=== PATIENT | female | born 1940 | race Caucasian/White ===

== ENCOUNTER 2024-12-22 10:56 | Observation (INO) | payer MEDICARE, SELFPAY ==
--- OUTSIDE RECORDS SUMMARY | 2023-07-30 03:30 | XMS_ITS ---
Author Organization [facility] pecialists [facility] Address [address] [place] [address] [place] [address] Care Team Providers Care Harness Repairer Name Role Phone Rey Rey, Joe Primary Care Provider Kvng Byrd MD, [facility] [phone] REASON FOR VISIT [facility]-rt modified radical mastectomy Encounters Encounter Location Date Provider Diagnosis [facility] Outpatient [address] [place] [address] 07/30/2023 Juan Daniel Byrd Plan Of Treatment No Information Progress Notes * Loki KELLOGGDOB: [birth year] (84 yo F)Acc No.[id number]:07/30/2023 Patient: Triny COREAS Loki Omalley Provider: Anthony Byrd MD :1940 A ge:83 Y S ex:Female Date:07/30/2023 Address:[address] [place], [place] [id number] Pcp:Joe Le DRome * Images: * Electronic signature of Jayme Byrd MD, , [id number] on 12/22/2024 at 12:03 PM EDT Sign off status: Pending * Provider: Anthony Byrd MD Date: 0 07/30/2023 Generated for Ubaldo monson/Taras/eTransmitting on: 1 12:03 PM EDT
[2024-12-22] VITALS (36 sets, daily range): BP systolic 107–253; BP diastolic 58–110; PULSE 50–87; TEMP 36.8–37.3; O2SAT 93–97; BMI 35.2; BMI 27.1
--- NOTE | 2024-12-22 11:14 | XR_ITS ---
The [place] [id number] Patient Name: BRODY MUNSON MRN: [id number] date: 1940 Sex: F Assigned Patient Location: ER Current Patient Location: ER Accession/Order Number: [id number] Exam Date: 12/22/2024 11:32 Report Date: 12/22/2024 11:47 At the request of: TREASURE MERCADO MD Procedure: XR chest 1V Single view chest: CLINICAL HISTORY: Chest pain COMPARISON: None FINDINGS: The heart is normal in size. Mild interstitial changes without consolidation or pneumothorax. The pulmonary vasculature is normal. Mediastinum and hilar regions are unremarkable. No pleural effusions are seen. Visualized bones are intact. XR/XR chest 1V IMPRESSION: MILD INTERSTITIAL CHANGES. NO CONSOLIDATION TO SUGGEST PNEUMONIA. Impression dictated by: Augusto Jasmine Jr., D.O. 12/22/2024 11:47 AM Dictation Location: [place] [address] Electronically authenticated by: [id number] Y Date: 12/22/2024 11:47
--- NOTE | 2024-12-22 11:14 | ECG_ITS ---
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 Measurements Intervals [place] Rate: 57 P: 63 ID: 170 QRS: 24 QRSD: 86 T: 90 QT: 412 QTc: 407 Interpretive Statements 1100 Sinus rhythm 3114 Cannot rule out anterior myocardial infarction, age undetermined 9150 abnormal ECG No previous ECG available for comparison Electronically Signed On 12-22-2024 18:06:23 EDT by YANIQUE GARCIAS M.D.
--- NOTE | 2024-12-22 11:15 | ED.GENADUL1 ---
HPI HPI - General Adult General Chief complaint: Chest Pain Stated complaint: R SHOULDER PAIN Time Seen by Provider: 12/22/24 10:59 Source: patient Mode of arrival: walk-in History of Present Illness HPI narrative: 84-year-old female presents for right shoulder and chest and neck pain. She has been having this on and off for a few days but it got worse during the night and it kept waking her up. She still has it now mostly in the neck. She does not know if she has had a heart catheterization or not. No fever or cough or complaints to me of shortness of breath. Related Data Home Medications ?Medication ?Instructions ?Recorded ?Confirmed duloxetine 30 mg capsule,delayed 30 mg PO DAILY 12/22/24 12/22/24 release glimepiride 2 mg tablet 2 mg PO DAILY 12/22/24 12/22/24 hydroxyzine HCl 25 mg tablet 25 mg PO BID 12/22/24 12/22/24 losartan 100 1 tab PO DAILY 12/22/24 12/22/24 mg-hydrochlorothiazide 25 mg tablet Allergies Allergy/AdvReac Type Severity Reaction Status Date / Time aspirin Allergy Severe Unknown Verified 12/22/24 11:06 Penicillins Allergy Severe Swelling Verified 12/22/24 11:06 of Lip/Tongue/Throat Review of Systems ROS Narrative A ten point review of systems is negative except as noted above. [facility] Medical History (Updated 12/22/24 @ 13:39 by Erick Lewis MD) Breast cancer ?C50.919 - Malignant neoplasm of unspecified site of unspecified female breast (ICD-10) HTN (hypertension) ?I10 - Essential (primary) hypertension (ICD-10) Social History Little interest or pleasure in doing things: not at all Feeling down, depressed, or hopeless: not at all Exam Narrative Exam Narrative: Nurses note and vital signs reviewed and patient is not hypoxic. General:The patient appears in no apparent distress. Skin:Warm, dry, no pallor noted.There is no rash noted. Head:Normocephalic, atraumatic; no swelling or masses in the neck Eye: Normal conjunctiva, no drainage Ears, Nose, Mouth, and Throat: oral mucosa is moist. Nares patent. Cardiovascular:Regular Rate and Rhythm Respiratory:Patient is in no distress, no accessory muscle use, lungs are clear to auscultation, no wheezing, rales or rhonchi Back:non-tender GI: Soft and nontender Musculoskeletal: The patient has no evidence of calf tenderness, no pitting edema, symmetrical pulses noted bilaterally Neurological: Awake and alert Psychiatric:Cooperative Constitutional Vital Signs, click to edit/add: Last Vital Signs Temp 98.2 F 12/22/24 10:59 Pulse 60 12/22/24 13:31 Resp 17 12/22/24 13:31 BP 192/76 H 12/22/24 13:31 Pulse Ox 96 12/22/24 13:31 O2 Del Method Room Air 12/22/24 10:59 Course Vital Signs Vital signs: Vital Signs Temperature 98.2 F 12/22/24 10:59 Pulse Rate 72 12/22/24 10:59 Respiratory Rate 20 12/22/24 10:59 Blood Pressure 212/90 H 12/22/24 10:59 Pulse Oximetry 96 12/22/24 10:59 Oxygen Delivery Method Room Air 12/22/24 10:59 Temperature 98.2 F 12/22/24 10:59 Pulse Rate 60 12/22/24 13:31 Respiratory Rate 17 12/22/24 13:31 Blood Pressure 192/76 H 12/22/24 13:31 Pulse Oximetry 96 12/22/24 13:31 Oxygen Delivery Method Room Air 12/22/24 10:59 Medical Decision Making MDM Narrative Medical decision making narrative: Pulmonary embolism is identified on the CTA. Lower extremity Dopplers are pending. She does not have any contraindications to blood thinners and she was given subcutaneous Lovenox. Case discussed with the patient and her family and she is being admitted. Treatment diagnosis and disposition were discussed thoroughly. No evidence of heart strain at this point. Differential Diagnosis Differential Diagnosis: PE, ME, NSTEMI, pneumothorax Lab Data Lab results reviewed: Yes I reviewed the patient's lab results Labs: Lab Results 12/22/24 Range/Units 11:13 WBC 8.5 (4.0-11.0) 10^3/uL RBC 4.35 (4.20-5.40) 10^6/uL Hgb 13.7 (12.0-16.0) g/dL Hct 40.4 (36.0-48.0) % MCV 92.9 (81.0-99.0) fL MCH 31.5 (26.7-34.0) pg MCHC 33.9 (29.9-35.2) g/dL RDW 12.4 (11.0-15.0) % Plt Count 285 (150-450) 10^3/uL MPV 9.5 (9.5-13.5) fL Neut % (Auto) 46.5 (43.0-75.0) % Lymph % (Auto) 47.1 (20.5-60.0) % Mccreary % (Auto) 4.5 (1.7-12.0) % Eos % (Auto) 1.2 (0.9-7.0) % Baso % (Auto) 0.5 (0.2-2.0) % Neut # (Auto) 4.0 (1.4-6.5) 10^3/uL Lymph # (Auto) 4.0 H (1.2-3.8) 10^3/uL Mccreary # (Auto) 0.4 (0.3-0.8) 10^3/uL Eos # (Auto) 0.1 (0.0-0.7) 10^3/uL Baso # (Auto) 0.0 (0.0-0.1) 10^3/uL Abs Immat Gran (auto) 0.02 (0.00-0.03) 10^3/uL Imm/Tot Granulo (auto) 0.2 (0.0-0.5) % D-Dimer 1.62 H* (<=0.59) mg/L FEU Sodium 142 (136-145) mmol/L Potassium 3.4 L (3.5-5.1) mmol/L Chloride 105 (98-107) mmol/L Carbon Dioxide 28.5 (21.0-32.0) mmol/L Anion Gap 11.9 BUN 14.0 (7.0-18.0) mg/dL Creatinine 0.92 (0.55-1.02) mg/dL Est GFR ( Amer) >60 (>=60 mL/min/1.73m^2) Est GFR (Non-Af Amer) 58 L (>=60 mL/min/1.73m^2) BUN/Creatinine Ratio 15.2 Glucose 230 H (74-106) mg/dL Calcium 8.7 (8.5-10.1) mg/dL Troponin I High Sens 8.0 (4.0-51.3) pg/mL Imaging Data Chest x-ray: Radiologist's impression: ITS Impressions Chest X-Ray 12/22/24 11:14 IMPRESSION: MILD INTERSTITIAL CHANGES. NO CONSOLIDATION TO SUGGEST PNEUMONIA. Impression dictated by: Augusto Jasmine Jr., D.O. 12/22/2024 11:47 AM Dictation Location: [employer] Electronically authenticated by: [id number] Y Date: 12/22/2024 11:47 Chest CTA 12/22/24 11:55 IMPRESSION: FILLING DEFECT IS SEEN INVOLVING SEGMENTAL BRANCH OF THE RIGHT LOWER LOBE SUSPICIOUS FOR PULMONARY EMBOLISM. NO EVIDENCE OF RIGHT HEART STRAIN. Impression dictated by: Augusto Jasmine Jr., D.O. 12/22/2024 1:08 PM Dictation Location: [employer] Electronically authenticated by: [id number] Y Date: 12/22/2024 13:08 ECG Data Attestation: I personally reviewed and interpreted this ECG as follows: (EKG on my interpretation shows sinus rhythm with rate of 57 and no acute change) Critical Care Time Critical Care Time Critical Care Time: Yes Total Critical Care Time: 35 Attestation: Due to the high probability of sudden and clinically significant deterioration in the patient's condition he/she required the highest level of my preparedness to intervene urgently I provided critical care time including documentation time, medication orders and management, reevaluation, vital sign assessment, ordering and reviewing of lab tests, ordering and reviewing of x-ray studies, and admission orders. Aggregate critical care time is 35 minutes including only time during which I was engaged in work directly related to his/her care and did not include time spent treating other patients simultaneously. Discharge Plan Discharge Chief Complaint: Chest Pain Clinical Impression: Pulmonary embolism Patient Disposition: Admitted as Observation Time of Disposition Decision: 13:39 Condition: Fair
[2024-12-22 11:25] LABS: Hematocrit 40.4 % (36.0-48.0); Hemoglobin 13.7 g/dL (12.0-16.0); Immature Granulocytes Abs Auto 0.02 10^3/uL (0.00-0.03); Immature Granulocytes Pct Auto 0.2 % (0.0-0.5); Lymphocytes Absolute Auto 4.0 10^3/uL (1.2-3.8); Mean Corpuscular HGB Conc 33.9 g/dL (29.9-35.2); Mean Corpuscular Hemoglobin 31.5 pg (26.7-34.0); Mean Corpuscular Volume 92.9 fL (81.0-99.0); Platelet Count 285 10^3/uL (150-450); Red Blood Count 4.35 10^6/uL (4.20-5.40); White Blood Count 8.5 10^3/uL (4.0-11.0)
[2024-12-22 11:46] LABS: Anion Gap 11.9; Blood Urea Nitrogen 14.0 mg/dL (7.0-18.0); Calcium 8.7 mg/dL (8.5-10.1); Carbon Dioxide 28.5 mmol/L (21.0-32.0); Chloride 105 mmol/L (98-107); Estimated GFR (African America >60 (>=60 mL/min/1.73m^2); Estimated GFR (Non-African Ame 58 (>=60 mL/min/1.73m^2); Glucose 230 mg/dL (74-106); Potassium 3.4 mmol/L (3.5-5.1); Sodium 142 mmol/L (136-145)
--- NOTE | 2024-12-22 11:55 | CT_ITS ---
The [address] [address] Patient Name: BRODY MUNSON MRN: [id number] date: 1940 Sex: F Assigned Patient Location: ED.MAIN Current Patient Location: ED.MAIN Accession/Order Number: [id number] Exam Date: 12/22/2024 12:35 Report Date: 12/22/2024 13:08 At the request of: TREASURE MERCADO MD Procedure: CT angio chest CT ANGIOGRAM OF THE CHEST, PULMONARY EMBOLISM PROTOCOL: CLINICAL INFORMATION: Elevated d-dimer. Chest pain COMPARISON: TECHNIQUE: Following intravenous injection of contrast CT scans of the chest were obtained using pulmonary embolism protocol. Coronal and sagittal reconstructed images, as well as volume rendered CT pulmonary angiographic images were also submitted.The CT exam was performed using one or more of the following dose reduction techniques: Automated exposure control, adjustment of the MA and/or Kv according to patient size, or use of the iterative reconstruction technique. FINDINGS: Pulmonary Vasculature: Contrast bolus is adequate for evaluation of pulmonary embolism. Pulmonary trunk appears nondilated. A filling defect is seen involving a segmental branch of the right lower lobe suspicious for nonocclusive embolism. Mediastinum : Thoracic aorta is normal in caliber. No pericardial effusion. No lymphadenopathy. The esophagus is grossly unremarkable. Lungs: Expiratory phase of imaging with air trapping present. Scattered areas of lung scarring. Calcified granulomas. No consolidation pneumothorax or pleural effusion. Upper abdomen: No acute findings liver and splenic granulomas. Soft tissue/bones: Soft tissues surrounding the chest wall demonstrate no acute findings. Osseous structures demonstrate degenerative change. CT/CT angio chest IMPRESSION: FILLING DEFECT IS SEEN INVOLVING SEGMENTAL BRANCH OF THE RIGHT LOWER LOBE SUSPICIOUS FOR PULMONARY EMBOLISM. NO EVIDENCE OF RIGHT HEART STRAIN. Impression dictated by: Augusto Jasmine Jr., D.O. 12/22/2024 1:08 PM Dictation Location[facility] Electronically authenticated by: [id number] Y Date: 12/22/2024 13:08
--- OUTSIDE RECORDS SUMMARY | 2024-12-22 12:04 | XMS_ITS | Encounter Summary ---
Author Organization [facility] Address [address], [address] [place] [address] Care Team Providers Care Property Controller Name Role Phone Joe Le MD Primary Care Provider [phone] Encounter Details Date Type Department Care Team (Late st Contact Info) Description 04/29/2022 Transcribe Orders [facility] [address] [place] [address] Brianna Felder MD [address] [address] Social History Tobacco Use Types Packs/Day Years Used Date Smoking Tobacco: Never Smokeless Tobacco: Never Alcohol Use Standard Drinks/Week Comments Not Currently 0 (1 standard drink = 0.6 oz pur e alcohol) Comments No Sex and Gender Information Value Date Recorded Sex Assigned at Not on file Legal Sex Female 5:08 PM EST Gender Identity Not on file Sexual Orientation Not on file documented as of this encounter Plan of Treatment Not on file documented as of this encounter Visit Diagnoses Not on filedocumented in this encounter Care Teams Property Controller Relationship Specialty Start Date End Date Joe Le MD [address] [place] [address] PCP - General Family Medicine 03/19/22 documented as of this encounter
--- OUTSIDE RECORDS SUMMARY | 2024-12-22 12:06 | XMS_ITS | Clinical Summary ---
Author Organization [facility] Address [address] [facility] [address], [address] [place] [address] Care Team Providers Care Compression Molding Machine Operator Name Role Phone Joe Le MD Primary Care Provider [phone] Allergies Active Allergy Reactions Criticality Noted Date Comments Aspirin 09/06/2020 Other reaction(s): red itchy skin Penicillins High 09/06/2020 Other reaction(s): swelling of extremities Spearmint Oil High 09/06/2020 Other reaction(s): Tongue swelling Medications etodolac (LODINE) 400 MG tablet 02/03/2022 Active metFORMIN (GLUCOPHAGE) 500 MG tablet 02/03/2022 Activ e amLODIPine (NORVASC) 10 MG tablet 12/19/2021 Active glimepiride (AMARYL) 2 MG tablet Take 2 mg by mouth every morning (before breakfast) Active losartan-hydroC HLOROthiazide (HYZAAR) 100-25 MG per tablet 03/17/2022 Activ e Active Problems No known active problems Social History Tobacco Use Types Packs/Day Years Used Date Smoking Tobacco: Never Smokeless Tobacco: Never Tobacco Cessation:Counseling Given: Not Answered Alcohol Use Standard Drinks/Week Comments Not Currently 0 (1 standard drink = 0.6 oz pur e alcohol) Comments No Sex and Gender Information Value Date Recorded Sex Assigned at Not on file Legal Sex Female 5:08 PM EST Gender Identity Not on file Sexual Orientation Not on file Last Filed Vital Signs Vital Sign Reading Time Taken Comments Blood Pressure 122/68 03/19/2022 10:04 AM EST Pulse - - Temperature - - Respiratory Rate - - Oxygen Saturation - - Inhaled Oxygen Concentration - - Weight 77.2 kg (170 lb 3.2 oz) 03/19/2022 10:04 AM EST Height 152.4 cm (5') 03/19/2022 10:04 AM EST Body Mass Index 33.24 03/19/2022 10:04 AM EST Plan of Treatment Health Maintenance Due Date Last Done Comments Depression Screen 1950 DTaP/Tdap/Td vaccine (1 - Tdap) 1957 Pneumococcal 50+ years Vacci ne (1 of 1 - PCV) 01/24/1988 Shingles vaccine (1 of 2) 01/24/1988 Respiratory Syncytial Virus (RSV) or age 60 yrs+ (1 - 1-dose 75+ series) 2013 Flu vaccine (#1) 10/06/2024 COVID-19 Vaccine ( - 2023-2 5 season) 2024 Hepatitis A vaccine Aged Out No longe r eligible based on patient's age to complete this topic Hepatitis B vaccine Aged Out No longe r eligible based on patient's age to complete this topic Hib vaccine Aged Out No longer eligi ble based on patient's age to complete this topic Meningococcal (ACWY) vaccine Aged Out No longer eligible based on patient's age to complete this topic Meningococcal B vaccine Aged Out No l onger eligible based on patient's age to complete this topic Polio vaccine Aged Out No longer elig ible based on patient's age to complete this topic [facility] [address] [place] [id number] H[employer] Care Teams Compression Molding Machine Operator Relationship Specialty Start Date End Date Joe Le MD [address] [place] [id number] PCP - General Family Medicine 03/19/22
--- OUTSIDE RECORDS SUMMARY | 2024-12-22 12:06 | XMS_ITS | Patient Health Record ---
Author Organization [facility] pecialists [facility] Address [address] [place] [address] Care Team Providers Care Dye Feeder Name Role Phone Joe Le D.O. 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
--- OUTSIDE RECORDS SUMMARY | 2024-12-22 12:06 | XMS_ITS | Clinical Summary ---
Author Organization [facility] Address [address] [place] [address] Care Team Providers Care Filling Hauler Name Role Phone Unavailable Primary Care Provider Unavailabl e Social History Tobacco Use Types Packs/Day Years Used Date Smoking Tobacco: Never Assessed Comments Unknown Sex and Gender Information Value Date Recorded Sex Assigned at Not on file Legal Sex Female 7:04 PM EDT Gender Identity Not on file Sexual Orientation Not on file Last Filed Vital Signs Vital Sign Reading Time Taken Comments Blood Pressure 166/79 02/03/2021 12:00 PM EST Pulse - - Temperature - - Respiratory Rate - - Oxygen Saturation - - Inhaled Oxygen Concentration - - Weight 76.7 kg (169 lb 3.2 oz) 01/28/2022 12:00 PM EST Height 151.1 cm (4' 11.5 ) 01/28/2022 12:[address] Body Mass Index 33.6 01/28/2022 12:00 PM EST Plan of Treatment Not on file Insurance [facility] MEDIC[facility] ADVANTAGE
--- OUTSIDE RECORDS SUMMARY | 2024-12-22 12:06 | XMS_ITS | Clinical Summary ---
Author Organization [facility] Address [address] [place] [address] Care Team Providers Care Expressive Therapist Name Role Phone Unavailable Primary Care Provider Unavailabl e Social History Tobacco Use Types Packs/Day Years Used Date Smoking Tobacco: Never Assessed Comments Unknown Sex and Gender Information Value Date Recorded Sex Assigned at Not on file Legal Sex Female 1:12 PM EDT Gender Identity Not on file Sexual Orientation Not on file Plan of Treatment Health Maintenance Due Date Last Done Comments DEXA SCAN DISCUSSION 1940 TETANUS 1940 TDAP (ADULT) 1957 CERVICAL CANCER SCREENING DISCUSSION 1959 MAMMOGRAM SCREENING DISCUSSION 1978 COLORECTAL CANCER SCREENING DISCUSSION 1983 PNEUMOCOCCAL VACCINE SERIES (1 of 1 - PCV) 01/24/1988 ZOSTER (SHINGLES) VACCINE (1 of 2) 01/24/1988 RSV VACCINE (1 - 1-dose 75+ series) 2013 COVID-19 VACCINE (1 - 2024-2 6 season) 2024 INFLUENZA VACCINE (#1) 2024 HEP B VACCINE Aged Out No longer elig ible based on patient's age to complete this topic Insurance [address] [place] [address] Medicare [employer] HMO PPO [place] [id number]
--- OUTSIDE RECORDS SUMMARY | 2024-12-22 12:06 | XMS_ITS | Clinical Summary ---
Author Organization [facility] Address [address] [place] [address] Care Team Providers Care Storage Brine Worker Name Role Phone Joe Le MD Primary Care Provider [phone] Social History Tobacco Use Types Packs/Day Years Used Date Smoking Tobacco: Never Assessed Comments Unknown Sex and Gender Information Value Date Recorded Sex Assigned at Not on file Legal Sex Female 8:58 AM EDT Gender Identity Not on file Sexual Orientation Not on file Last Filed Vital Signs Vital Sign Reading Time Taken Comments Blood Pressure - - Pulse - - Temperature - - Respiratory Rate - - Oxygen Saturation - - Inhaled Oxygen Concentration - - Weight 87.5 kg (193 lb) 02/22/2015 10:20 AM EST Height 157.5 cm (5' 2 ) 02/22/2015 10:20 AM EST Body Mass Index 35.3 02/22/2015 10:20 AM EST Plan of Treatment Health Maintenance Due Date Last Done Comments DTaP,Tdap,and Td Vaccines (1 - Tdap) 1957 Pneumococcal Vaccines 50year s + (1 of 1 - PCV) 01/24/1988 Zoster Recombinant Vaccines (1 of 2) 01/24/1988 DEXA Bone Density Baseline 2003 Respiratory Syncytial Virus (RSV) or ages 60 years and older (1 - 1-dose 75+ series) 2013 COVID-19 Vaccine ( - 2024-2 6 season) 2024 Influenza Vaccine (#1) 2024 Respiratory Syncytial Virus (RSV) ages 0 thru 19 months Aged Out No longer eligible based on patient's age to complete this topic Insurance MEDICARE PART A AND B Care Teams Storage Brine Worker Relationship Specialty Start Date End Date Joe Le MD [address] [place] [address] PCP - General Family Medicine 10/15/14
--- OUTSIDE RECORDS SUMMARY | 2024-12-22 12:06 | XMS_ITS | Clinical Summary ---
Author Organization [facility] Address [address] [place] [address] Care Team Providers Care Net Programmer Name Role Phone Joe Le MD Primary Care Provider [phone] Kassy Vega MD Unavailable [phone] Stephanie Burciaga CNP Unavailable [phone] Allergies Active Allergy Reactions Criticality Noted Date Comments Adhesive Tape-Silicones 07/24/2022 Other reaction(s): Unknown Aspirin Other Medium 09/06/2020 Other reaction(s): red itchy skin Other reaction(s): red itchy skin Other reaction(s): red itchy skin Bee Sting Kit Unknown 07/24/2022 Cortisone High 06/17/2022 Other reaction(s): severe pain Penicillins High 09/06/2020 Other reaction(s): swelling of extremities Other reaction(s): swelling of extremities Other reaction(s): swelling of extremities Spearmint Oil High 09/06/2020 Other reaction(s): Tongue swelling Other reaction(s): Tongue swelling Other reaction(s): Tongue swelling Medications losartan-hydroc hlorothiazide (Hyzaar) 100-25 mg tablet Take 1 tablet by mouth in the morning. 03/17/2022 Active glimepiride (Amaryl) 2 mg tablet Take 2 mg by mouth before breakfast. Active gabapentin (Neurontin) 100 mg capsule TAKE 1 CAPSULE BY MOUTH ONCE DAILY FOR 30 DAYS 07/08/2020 Active etodolac (Lodine) 400 mg tablet 04/22/2022 Active melatonin 3 mg capsule Active TRUEplus Lancets 33 gauge misc 07/24/2022 Active True Metrix Air Glucose Meter kit 07/24/2022 Active True Metrix Glucose Test Strip strip 07/24/2022 Active DropSafe Alcohol Prep Pads pads, medicated 07/24/2022 Active metoprolol tartrate (Lopressor) 25 mg tablet Take 25 mg by mouth twice a day. 02/15/2023 Active ipratropium (Atrovent) 0.02 % nebulizer solution Inhale 0.5 mg every 6 (six) hours if needed. 02/15/2023 Active letrozole (Femara) 2.5 mg chemo tabletIndicatio ns:Invasive ductal carcinoma of right breast (CMS/HCC),Malig nant neoplasm of central portion of right breast in female, estrogen receptor positive (CMS/HCC) Take 1 tablet (2.5 mg total) by mouth in the morning Take with or without food. 90 tablet 2 06/30/2023 Active gabapentin (Neurontin) 300 mg capsule Take 300 mg by mouth in the morning and at bedtime. 07/15/2023 Active apixaban (Eliquis) 5 mg tablet Take 5 mg by mouth in the morning and at bedtime. Active HYDROcodone-aldo taminophen ([place]) 5-325 mg tablet Take 1 tablet by mouth every 6 (six) hours if needed for severe pain (8-10 pain score). Active Active Problems Problem Noted Date Diagnosed Date Acute pulmonary embolism without acute cor pulmo nale 06/30/2023 Post-menopausal 06/30/2023 Osteopenia of multiple sites 06/30/2023 Invasive ductal carcinoma of right breast 2023 Malignant neoplasm of central portion of female breast 06/24/2023 Cancer Staging:Clinical stage from 06/26/2022:Stage IIA(cT2, cN1, cM0, G1, ER+, LA+, HER2-) - Signed by Kassy Vega MD on 07/14/2023 Estrogen receptor positive neoplasm 06/24/2023 06/24/2023 Controlled type 2 diabetes m ellitus without complication, without long-term current use of insulin 02/10/2023 06/24/2023 Hypomagnesemia 02/10/2023 06/24/2023 Pneumonia of right lower lobe due to infectious organism 02/10/2023 06/24/2023 Primary hypertension 02/10/2023 06/24/2023 Single subsegmental pulmonar y embolism without acute cor pulmonale 02/10/2023 06/24/2023 Retinal hemorrhage 10/30/2011 Exudative age-related macular degeneration 10/29 Pseudophakia 10/30/2011 Family History Medical History Relation Name Comments Breast cancer Daughter Liver cancer Father Thyroid disease Mother Uterine cancer Mother Cancer Paternal Grandmother Relation Name Status Comments Daughter Father Mother Paternal Grandmother Social History Tobacco Use Types Packs/Day Years Used Date Smoking Tobacco: Former Cigarettes Q uit: 1988 Smokeless Tobacco: Never Tobacco Cessation:Counseling Given: Not Answered Alcohol Use Standard Drinks/Week Comments Yes 0 (1 standard drink = 0.6 oz pur e alcohol) Maybe once a month - beer Humiliation, Afraid, Rape, and Kick questionnair e Answer Date Recorded Within the last year, have y ou been afraid of your partner or ex-partner? No 08/19/2023 Emotionally Abused Not on file 08/19/2023 Physically Abused Not on file 08/19/2023 Sexually Abused Not on file 08/19/2023 PHQ-2 Answer Date Recorded Patient Health Questionnaire-2 Score 0 08/19/2023 Comments No Sex and Gender Information Value Date Recorded Sex Assigned at Not on file Legal Sex Female 2:30 PM EDT Gender Identity Not on file Sexual Orientation Not on file Last Filed Vital Signs Vital Sign Reading Time Taken Comments Blood Pressure 156/50 07/23/2023 12:57 PM EDT Pulse 57 07/23/2023 12:57 PM EDT Temperature 37.2 C (98.9 F) 07/23/2023 12:57 PM EDT Respiratory Rate 16 06/25/2023 1:51 PM EDT Oxygen Saturation 94% 07/23/2023 12:57 PM EDT Inhaled Oxygen Concentration - - Weight 81.2 kg (179 lb) 08/19/2023 1:05 PM EDT Height 152.4 cm (5') 07/23/2023 12:57 PM EDT Body Mass Index 34.96 07/23/2023 12:57 PM EDT Plan of Treatment Health Maintenance Due Date Last Done Comments Diabetes: Hemoglobin A1C 1940 Medicare Annual Wellness (AWV) 1940 Diabetes: Retinopathy Screening 01/24/1948 Depression Screening 1950 Diabetes: Urine Protein Screening 1957 Pneumococcal Vaccine: 50+ Ye ars (1 of 2 - PCV) 1957 Adult Tetanus 01/24/1960 Zoster Vaccines (1 of 2) 01/24/1988 Fall Risk Screening 2003 COVID-19 Vaccine (1 - 2023-2 5 season) 2024 Influenza Vaccine (#1) 2024 HIB Vaccines Aged Out No longer eligi ble based on patient's age to complete this topic HPV Vaccines Aged Out No longer eligi ble based on patient's age to complete this topic IPV Vaccines Aged Out No longer eligi ble based on patient's age to complete this topic Meningococcal B Vaccine Aged Out No l onger eligible based on patient's age to complete this topic Meningococcal Vaccine Aged Out No flynn lele eligible based on patient's age to complete this topic Rotavirus Vaccines Aged Out No longer eligible based on patient's age to complete this topic Insurance [facility] MEDICARE ADVANTAGE Care Teams Net Programmer Relationship Specialty Start Date End Date Joe Le MD [address] [place] [address] PCP - General 06/30/23 Kassy Vega MD [address] [place] [address] Consulting Physician Hematology and Oncology 06/30/23 Stephanie Burciaga, UNDERWATER PHOTOGRAPHER [address] [place] [address] Consulting Physician Oncology 08/11/23
[2024-12-22] MEDS: HYDRALAZINE HCL 20 MG/ML VIAL 10 MG IVP ×2 (13:18→16:28)
[2024-12-22] MEDS: ENOXAPARIN SODIUM 80 MG/0.8 ML SYRINGE SUBQ ×2 (13:49→22:27)
--- NOTE | 2024-12-22 14:42 | PM.HP ---
HPI H&P: HPI History of Present Illness Chief complaint: R SHOULDER PAIN PULMONARY EMBOLISM Narrative: Patient is an 84 year old female with medical hx as listed below, presented with pain on R sided of chest has been getting worse over the past few days. Denies fevers, chills, nausea, vomiting, diarrhea. Presented hypertensive. workup in ER showed elevated D-dimer, they ended up getting CT PE protocol which showed RLL PE, no evidence of R heart strain. Pt reports noncompliance with meds at home. Decision was made to keep for observation. Opioid HPI Opioid Management Most Recent Pain and Opioid Data: Last ORT Total Score 0 Today, 15:04 Last ORT Risk Category Low Risk Today, 15:04 Review of Systems ROS Status of ROS 10 or more systems reviewed and unremarkable except as noted in history and [facility] Breast cancer ?C50.919 - Malignant neoplasm of unspecified site of unspecified female breast (ICD-10) HTN (hypertension) ?I10 - Essential (primary) hypertension (ICD-10) Social History Highest level of school completed/degree received: 10th grade Little interest or pleasure in doing things: not at all Feeling down, depressed, or hopeless: not at all Meds Home Medications and Allergies Home Medications ?Medication ?Instructions ?Recorded ?Confirmed ?Type apixaban 5 mg (74 tabs) tablets in 5 mg PO BID #74 ea 12/22/24 Rx a dose pack (Eliquis DVT-PE Treat 30D Start) duloxetine 30 mg capsule,delayed 30 mg PO DAILY 12/22/24 12/22/24 History release glimepiride 2 mg tablet 2 mg PO DAILY 12/22/24 12/22/24 History hydroxyzine HCl 25 mg tablet 25 mg PO BID 12/22/24 12/22/24 History losartan 100 1 tab PO DAILY 12/22/24 12/22/24 History mg-hydrochlorothiazide 25 mg tablet Allergies Allergy/AdvReac Type Severity Reaction Status Date / Time aspirin Allergy Severe Unknown Verified 12/22/24 11:06 Penicillins Allergy Severe Swelling Verified 12/22/24 11:06 of Lip/Tongue/Throat Exam Narrative Exam Narrative: Const General: cooperative HEENT Normal oropharyngeal mucosa without any ulcers or exudates Breast exam:(done with chaperson RN at bedside and in the room): inspection lesion around nipple area, discharge noted, erythema surrounding it. Eyes: Conjunctiva normal Pulmonary Auscultation: clear to auscultation , no crackles, no wheezes Cardiovascular Rate: normal rate Rhythm: regular rhythm Heart Sounds: S1 normal, S2 normal and no murmurs GI Inspection: non-distended Palpation: soft, not firm and nontender. No rigidity or rebound. Deferred Neuro General: alert, awake and oriented x3. No obvious new focal deficit Musculoskeletal: normal range of motion Extrem General: no cyanosis, no pedal edema Psych Appearance: appropriate affect. Grossly normal Constitutional Vital Signs, click to edit/add: Last Vital Signs Temp 98.2 F 12/22/24 10:59 Pulse 75 12/22/24 14:10 Resp 19 12/22/24 14:10 BP 239/98 H 12/22/24 14:01 Pulse Ox 95 12/22/24 13:50 O2 Del Method Room Air 12/22/24 10:59 Results Labs Labs: Short CBC 12/22/24 Range/Units 11:13 WBC 8.5 (4.0-11.0) 10^3/uL Hgb 13.7 (12.0-16.0) g/dL Hct 40.4 (36.0-48.0) % Plt Count 285 (150-450) 10^3/uL BMP 12/22/24 11:13 Sodium 142 Potassium 3.4 L Chloride 105 Carbon Dioxide 28.5 BUN 14.0 Creatinine 0.92 Glucose 230 H Calcium 8.7 Assessment and Plan Assessment and Plan (1) Pulmonary embolism: (2) Hypertensive urgency: (3) Noncompliance with medications: Plan -CTA showed RLL, no evidence of Right heart strain, patient is hemodynamically stable, hypertensive on arrival here -Ordered venous Doppler. prelim no evidence of DVT -Started on Full dose Lovenox for full anticoagulation. Plan to transition to oral DOAC on discharge. Will arrange for Eliquis as outpatient. -Resume home meds. Added Coreg for better BP control -IV hydralazine as needed as directed Patient reports that she has been diagnosed with breast malignancy of R side. confirmed by biopsy, reports that it was malignant. No treatment was done as per pt as she would not tolerate it. Hypercoagulability likely due to underlying malignancy. DVT ppx: Lovenox Diet: as directed Discussed with pt and and son at bedside, all questions answered
--- NOTE | 2024-12-22 16:08 | CM.NOTE ---
CM discussed with pt regarding home Eliquis. Pt given card for 30day free trial and 15 dollar co-pay.
--- NOTE | 2024-12-22 16:14 | SWNOTE1 ---
Medicare Outpatient Observation Notice reviewed and discussed with patient. Pt. verbalized understanding and signed the form. Original given to patient and copy placed in patient?s chart.
--- NOTE | 2024-12-22 16:14 | SWNOTE1 ---
SW met with pt and her plan is to be discharged home tomorrow. She voiced she is feeling as good as she was when she came in. Pt stated she has lived a good life and taking it one day at a time. Pt has no anticipated discharge needs at this time. Pt family present in room and voiced no discharge needs.
[2024-12-22] MEDS: 0.9 % SODIUM CHLORIDE 500 ML IV (16:50)
--- NOTE | 2024-12-22 17:17 | PC.NURSE ---
1650- Call light on. Patient feeling dizzy. Skin moist and clammy. BP 76/40 manual. Head flat NS bolus initiated wide open. Dr Alexander notified and updated on event. 1655- BP 105/64. Cool cloth to forehead. Family at bedside 1700-BP 124/68. Feeling better. New orders received. Coreg discontinued. 1715- BP 123/56. Head of bed elevated. Sips of water taken. Patient relates feeling better. 1730- BP 139/66. NS bolus discontinued
--- NOTE | 2024-12-22 17:55 | ECG_ITS ---
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 Measurements Intervals [place] Rate: 67 P: 18 MI: 170 QRS: -18 QRSD: 102 T: 103 QT: 413 QTc: 437 Interpretive Statements SINUS RHYTHM WITH SINUS ARRHYTHMIA LEFT VENTRICULAR HYPERTROPHY AND ST-T CHANGE [VOLTAGE CRITERIA PLUS ST/T ABNORMALITY] INFERIOR MYOCARDIAL INFARCTION [40+ ms Q WAVE AND/OR ST/T ABNORMALITY IN II/aVF], PROBABLY OLD POSSIBLE ANTEROSEPTAL MYOCARDIAL INFARCTION [30 ms Q WAVE IN V1-V4], AGE UNDETERMINED Compared to ECG 12/22/2024 11:10:23 Left ventricular hypertrophy now present Myocardial infarct finding still present Electronically Signed On 12-23-2024 9:19:12 EDT by YANIQUE GARCIAS M.D.
[2024-12-22 18:59] LABS: Glucose Urine UA NEGATIVE (NEGATIVE)
[2024-12-22 19:09] LABS: Cast Seen? NONE SEEN #/LPF (NONE SEEN); Crystals Seen? None Seen #/HPF (None Seen); Urine Culture Indicated NO
[2024-12-22] MEDS: ACETAMINOPHEN 325 MG TABLET 650 MG PO (22:26)
[2024-12-22] MEDS: AMLODIPINE BESYLATE 5 MG TABLET PO (23:35)
[2024-12-23] VITALS (12 sets, daily range): BP systolic 144–168; BP diastolic 64–79; PULSE 48–86; TEMP 36.7–37.4; O2SAT 90–94
--- NOTE | 2024-12-23 07:00 | ECG_ITS ---
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 Measurements Intervals [place] Rate: 55 P: 33 AR: 173 QRS: -7 QRSD: 115 T: 143 QT: 458 QTc: 438 Interpretive Statements SINUS BRADYCARDIA LEFT VENTRICULAR HYPERTROPHY AND ST-T CHANGE [VOLTAGE CRITERIA PLUS ST/T ABNORMALITY] POSSIBLE SEPTAL MYOCARDIAL INFARCTION [30 ms Q WAVE IN V1/V2], OF INDETERMINATE AGE Compared to ECG 12/22/2024 18:15:12 Sinus arrhythmia no longer present Myocardial infarct finding still present Electronically Signed On 12-23-2024 9:20:06 EDT by YANIQUE GARCIAS M.D.
[2024-12-23 07:04] LABS: Anion Gap 12.4; Blood Urea Nitrogen 17.0 mg/dL (7.0-18.0); Calcium 8.8 mg/dL (8.5-10.1); Carbon Dioxide 28.8 mmol/L (21.0-32.0); Chloride 104 mmol/L (98-107); Estimated GFR (African America >60 (>=60 mL/min/1.73m^2); Estimated GFR (Non-African Ame >60 (>=60 mL/min/1.73m^2); Glucose 116 mg/dL (74-106); Potassium 3.2 mmol/L (3.5-5.1); Sodium 142 mmol/L (136-145)
[2024-12-23] MEDS: LOSARTAN POTASSIUM 50 MG TABLET 100 MG PO (08:53)
[2024-12-23] MEDS: AMLODIPINE BESYLATE 5 MG TABLET PO (08:53)
[2024-12-23] MEDS: DULOXETINE HCL 30 MG CAPSULE.DR PO (08:53)
[2024-12-23] MEDS: GLIMEPIRIDE 2 MG TABLET PO (08:53)
[2024-12-23] MEDS: ENOXAPARIN SODIUM 80 MG/0.8 ML SYRINGE SUBQ (08:54)
[2024-12-23] MEDS: HYDROCHLOROTHIAZIDE 25 MG TABLET PO (08:54)
--- NOTE | 2024-12-23 10:38 | P.DS_ITS ---
DS: Providers Provider Date of admission: 12/22/24 14:53 Primary care physician: JOSÉ MIGUEL MOE DS: Diagnosis Discharge Diagnosis (1) Pulmonary embolism: (2) Hypertensive urgency: (3) Noncompliance with medications: Plan as above DS: Summary Hospital Course Hospital Course: Patient is an 84 year old female with medical hx as listed below, presented with pain on R sided of chest has been getting worse over the past few days. Denies fevers, chills, nausea, vomiting, diarrhea. Presented hypertensive. workup in ER showed elevated D-dimer, they ended up getting CT PE protocol which showed RLL PE, no evidence of R heart strain. Pt reports noncompliance with meds at home. Decision was made to keep for observation. Venous doppler was done which was negative for DVT. While patient here, she remained hemodynamically stable.Saturating well on RA. chest discomfort has gotten better. BP is somewhat controlled. seems to have labile BP as yesterday her BP dropped after IV hydralazine then given some fluids for which she felt better. Continue to maintain BP meds what she takes at home with compliance. we are starting Eliquis for AC for her PE event. likely due to hypercoagulability due to her underlying malignancy that pt was deemed intolerant to treatment for it according to her. Continue to follow with her PCP. Discussed with patient at bedside, all questions answered, patient in agreement and comfortable with the plan. Explained to patient risk of bleeding while on anticoagulation and what to watch for, she verbalized understanding. Discussed with and son at bedside as well and discussed fall precautions and the risk of bleeding, they are in agreement and comfortable discharge plan at this time. Continue to follow-up with PCP as outpatient. Time Spent with Patient Time attestation: Total time spent providing and/or coordinating discharge services: Time spent: greater than 30 minutes Exam Narrative Exam Narrative: Const General: cooperative HEENT Normal oropharyngeal mucosa without any ulcers or exudates Eyes: Conjunctiva normal Pulmonary Auscultation: clear to auscultation , no crackles, no wheezes Cardiovascular Rate: normal rate Rhythm: regular rhythm Heart Sounds: S1 normal, S2 normal and no murmurs GI Inspection: non-distended Palpation: soft, not firm and nontender. No rigidity or rebound. Deferred Neuro General: alert, awake and oriented x3. No obvious new focal deficit Musculoskeletal: normal range of motion Extrem General: no cyanosis, no pedal edema Psych Appearance: appropriate affect. Grossly normal Constitutional Vital Signs, click to edit/add: Last Vital Signs Temp 99.3 F 12/23/24 10:33 Pulse 62 12/23/24 10:33 Resp 18 12/23/24 07:02 BP 168/75 H 12/23/24 10:25 Pulse Ox 90 L 12/23/24 10:33 O2 Del Method Room Air 12/23/24 10:33 DS: Data Data Completed and Pending Labs on day of discharge: Labs from last 24 hours 12/23/24 12/23/24 12/22/24 06:33 06:20 21:30 WBC RBC Hgb Hct MCV MCH MCHC RDW Plt Count MPV Neut % (Auto) Lymph % (Auto) [place] % (Auto) Eos % (Auto) Baso % (Auto) Neut # (Auto) Lymph # (Auto) [place] # (Auto) Eos # (Auto) Baso # (Auto) Abs Immat Gran (auto) Imm/Tot Granulo (auto) D-Dimer Sodium 142 Potassium 3.2 L Chloride 104 Carbon Dioxide 28.8 Anion Gap 12.4 BUN 17.0 Creatinine 0.75 Est GFR ( Amer) >60 Est GFR (Non-Af Amer) >60 BUN/Creatinine Ratio 22.7 Glucose 116 H Calcium 8.8 Troponin I High Sens 12.6 Urine Color Urine Clarity Urine pH Ur Specific [place] Urine Protein Urine Glucose (UA) Urine Ketones Urine Occult Blood Urine Nitrite Urine Bilirubin Urine Urobilinogen Ur Leukocyte Esterase Urine RBC Urine WBC Ur Squamous Epith Cells Urine Crystals Urine Bacteria Urine Casts Urine Mucus Ur Culture Indicated? POC Glucose 119 H 212 H 12/22/24 12/22/24 12/22/24 18:34 16:30 16:18 WBC RBC Hgb Hct MCV MCH MCHC RDW Plt Count MPV Neut % (Auto) Lymph % (Auto) [place] % (Auto) Eos % (Auto) Baso % (Auto) Neut # (Auto) Lymph # (Auto) [place] # (Auto) Eos # (Auto) Baso # (Auto) Abs Immat Gran (auto) Imm/Tot Granulo (auto) D-Dimer Sodium Potassium Chloride Carbon Dioxide Anion Gap BUN Creatinine Est GFR ( Amer) Est GFR (Non-Af Amer) BUN/Creatinine Ratio Glucose Calcium Troponin I High Sens 12.6 Urine Color Lt. yellow Urine Clarity Clear Urine pH 7.0 Ur Specific [place] 1.010 Urine Protein Negative Urine Glucose (UA) Negative Urine Ketones Negative Urine Occult Blood Negative Urine Nitrite Negative Urine Bilirubin Negative Urine Urobilinogen 0.2 Ur Leukocyte Esterase Negative Urine RBC 0-2 Urine WBC 0-2 A Ur Squamous Epith Cells Few A Urine Crystals None seen Urine Bacteria Trace A Urine Casts None seen Urine Mucus None seen Ur Culture Indicated? No POC Glucose 151 H 12/22/24 11:13 WBC 8.5 RBC 4.35 Hgb 13.7 Hct 40.4 MCV 92.9 MCH 31.5 MCHC 33.9 RDW 12.4 Plt Count 285 MPV 9.5 Neut % (Auto) 46.5 Lymph % (Auto) 47.1 [place] % (Auto) 4.5 Eos % (Auto) 1.2 Baso % (Auto) 0.5 Neut # (Auto) 4.0 Lymph # (Auto) 4.0 H [place] # (Auto) 0.4 Eos # (Auto) 0.1 Baso # (Auto) 0.0 Abs Immat Gran (auto) 0.02 Imm/Tot Granulo (auto) 0.2 D-Dimer 1.62 H* Sodium 142 Potassium 3.4 L Chloride 105 Carbon Dioxide 28.5 Anion Gap 11.9 BUN 14.0 Creatinine 0.92 Est GFR ( Amer) >60 Est GFR (Non-Af Amer) 58 L BUN/Creatinine Ratio 15.2 Glucose 230 H Calcium 8.7 Troponin I High Sens 8.0 Urine Color Urine Clarity Urine pH Ur Specific [place] Urine Protein Urine Glucose (UA) Urine Ketones Urine Occult Blood Urine Nitrite Urine Bilirubin Urine Urobilinogen Ur Leukocyte Esterase Urine RBC Urine WBC Ur Squamous Epith Cells Urine Crystals Urine Bacteria Urine Casts Urine Mucus Ur Culture Indicated? POC Glucose Discharge Plan Discharge Disposition: Home, Self-Care Condition: Fair Discharge Medications: Stas Taylor DVT-PE Treat 30D Start 5 mg (74 tabs) tablets,dose pack 5 mg PO BID Qty: 74 0RF Continued duloxetine 30 mg capsule,delayed release(DR/EC) 30 mg PO DAILY glimepiride 2 mg tablet 2 mg PO DAILY hydroxyzine HCl 25 mg tablet 25 mg PO BID losartan-hydrochlorothiazide 100-25 mg tablet 1 tab PO DAILY Print Language: [place] Patient Instructions: Pulmonary Embolism (DC), Blood Thinners (DC) Forms: Portal Instructions
--- NOTE | 2024-12-25 13:35 | CM.DCFOLLOWU ---
Person spoke with:patient How are you feeling? well How is your pain? still a little pain, but overall doing well Did you understand your discharge instructions?yes Do you have any questions about your discharge instructions?no Were you given any prescriptions at discharge?yes Were you able to get your prescriptions filled?yes Do you understand how to take your medications as ordered?yes Do you have any questions about your follow up appointment and do you plan to keep your follow up appointment? no questions. ZHANNA asked permission to call her PCP and schedule follow up, patient in agreement. ZHANNA called Dr. Le's office and made a n apt for patient on 12/29/24 @10:30am. ZHANNA called pt back and she confirmed she was alright with this date and time Is there anything else that you would like to discuss? no Questions/Comments/Concerns/Other:none
--- NOTE | 2024-12-25 13:36 | SWNOTE1 ---
ZHANNA completed follow up call with pt. Pt has not called her PCP office yet for follow up. SW offered to call and schedule follow up, pt in agreement and is alright with any date and time. ZHANNA called Dr. Le's office and scheduled patient for 12/29/24 at 10:30am. ZHANNA called pt back and she confirmed she is alright with this date and time. No further questions at this time.
== END 2024-12-23 11:10 | disposition home or self-care (01) ==
LOC: ER 13:39 → MS 14:56
PROVIDERS: Admitting Provider Internal Medicine; Emergency Provider Emergency Medicine; PCP Family Medicine; Visit Provider Internal Medicine
DX: I26.99 Other pulmonary embolism without acute cor pulmonale (principal); I16.0 Hypertensive urgency; Z91.148 Patient's other noncompliance with medication regimen for other reason; I10 Essential (primary) hypertension; C50.911 Malignant neoplasm of unspecified site of right female breast; D68.69 Other thrombophilia; Z79.899 Other long term (current) drug therapy
CPT/HCPCS: 36415; 71045; 71275; 80048; 81001; 82948; 84484; 85025; 85378; 93005; 93970; 96372; 96374; 96376; 99285; G0378; J0360; J1650; Q9967